=== PATIENT | female | born 1955 | race Two or more races ===

== ENCOUNTER 2017-04-14 14:06 | Outpatient (CLI) | payer OTHER | END 2017-04-14 15:10 | disposition home or self-care (01) | LOC: TOM 14:06 | DX: J32.0 Chronic maxillary sinusitis (principal) ==

== ENCOUNTER → 2017-04-26 | Outpatient (CLI) | payer OTHER ==
[~2017-04-26] VITALS: Ht 152.4 cm; Wt 54.4 kg
[~2017-04-26] MED LIST: CLARITIN10 MG PO; FLONASE16 GM NASAL
== END | disposition home or self-care (01) ==
LOC: OFIC 805 04-12 08:05
DX: J32.0 Chronic maxillary sinusitis (principal); J31.0 Chronic rhinitis; H93.13 Tinnitus, bilateral

== ENCOUNTER 2024-12-06 14:28 | Outpatient (CLI) | payer OTHER | END 2024-12-06 14:37 | disposition home or self-care (01) | LOC: LAB 14:28 | PROVIDERS: ATTEND Internal Medicine Hematology & Oncology | DX: E55.9 Vitamin D deficiency, unspecified (principal); M81.0 Age-related osteoporosis without current pathological fracture ==